=== PATIENT | male | born 1965 | race Caucasian/White ===

== ENCOUNTER 2018-08-27 17:49 | Emergency (ER) | payer SELFPAY ==
[2018-08-27 18:09] VITALS: BP 151/105
--- NOTE | 2018-08-27 18:54 | ER Document Report ---
HPI - HPI Patient complains to provider of: Leg contusion Onset: Other - 5 days Onset/Duration: Better Pain Level: Denies Context: Patient states that he stepped in a hole 5 days ago injuring his right calf. Patient states that he had swelling and bruising but has gradually started to notice bruising to his foot. Patient denies any injury to the foot. Patient states that initially had pain but denies any pain now. Associated Symptoms: Other - Right leg bruising Exacerbated by: Denies Relieved by: Denies Similar symptoms previously: No Recently seen / treated by doctor: No - ROS ROS below otherwise negative: Yes Systems Reviewed and Negative: Yes All other systems reviewed and negative - CONSTITUTIONAL Constitutional: DENIES: Fever - RESPIRATORY Respiratory: DENIES: Trouble Breathing - MUSCULOSKELETAL Musculoskeletal: REPORTS: Extremity pain, Swelling - DERM Skin Color: Ecchymosis Skin Problems: None Past Medical History - General Information source: Patient - Social History Smoking Status: Current Every Day Smoker Smoking Education Provided: Yes Frequency of alcohol use: Occasional Drug Abuse: None Occupation: self employed Family History: Reviewed & Not Pertinent - Medical History Medical History: Negative Past Surgical History: Reports: Hx Appendectomy, Hx Herniorrhaphy, Hx Orthopedic Surgery Vertical Provider Document - CONSTITUTIONAL Agree With Documented VS: Yes Exam Limitations: No Limitations General Appearance: WD/WN, No Apparent Distress - INFECTION CONTROL TRAVEL OUTSIDE OF THE [place] IN LAST 30 DAYS: No - HEENT HEENT: Atraumatic, Normocephalic - NECK Neck: Normal Inspection - RESPIRATORY Respiratory: No Respiratory Distress - CARDIOVASCULAR Pulses: Normal: Dorsalis pedis - MUSCULOSKELETAL/EXTREMETIES Musculoskeletal/Extremeties: MAEW, FROM, Non-Tender, Edema - Right calf swelling with ecchymosis, Eccymosis Notes: Muscle compartments to right calf soft - NEURO Level of Consciousness: Awake, Alert, Appropriate Motor/Sensory: No Motor Deficit - DERM Integumentary: Warm, Dry Course - Re-evaluation Re-evalutation: 08/27/18 19:38 X-ray reviewed, patient with incidental finding of bipartite patella. No tibial fracture. Muscle compartments soft, no concern for compartment syndrome. - Vital Signs Vital signs: Temp Pulse Resp BP Pulse Ox 98.2 F 82 16 151/105 H 97 08/27/18 18:07 08/27/18 18:07 08/27/18 18:07 08/27/18 18:07 08/27/18 18:07 - Diagnostic Test Radiology reviewed: Pending, Image reviewed Discharge - Discharge Clinical Impression: Traumatic ecchymosis of lower leg Qualifiers: Encounter type: initial encounter Laterality: right Qualified Code(s): S80.11XA - Contusion of right lower leg, initial encounter Condition: Stable Disposition: HOME, SELF-CARE Instructions: Contusion ([facility]) Additional Instructions: Return immediately for any new or worsening symptoms Followup with your primary care provider, call tomorrow to make a followup appointment Follow-up with orthopedics for any persistent pain or problems Forms: Smoking Cessation Education Referrals: [facility] [Provider Group] - Follow up as needed
--- NOTE | 2018-08-27 19:54 | RADIOLOGY REPORT (SQ) ---
EXAM DESCRIPTION: TIBIA FIBULA RIGHT COMPLETED DATE/TIME: 08/27/2018 7:37 pm REASON FOR STUDY: stepped in hole, leg pain/bruising COMPARISON: None. NUMBER OF VIEWS: Two views. TECHNIQUE: Two radiographic images acquired of the right tibia and fibula to include the knee and an kle in at least one projection. LIMITATIONS: None. FINDINGS: MINERALIZATION: Normal. BONES: No acute fracture or dislocation. No worrisome bone lesions. SOFT TISSUES: No obvious swelling or foreign body. OTHER: No other significant finding. IMPRESSION: NEGATIVE STUDY OF THE RIGHT TIBIA AND FIBULA. NO RADIOGRAPHIC EVIDENCE OF ACUTE INJURY. TECHNICAL DOCUMENTATION: JOB ID: [id number] [employer]- All Rights Reserved Reading location - IP/workstation name: [email or web address]
== END 2018-08-27 19:49 | disposition home or self-care (01) ==
LOC: ER 17:49
DX: S80.11XA Contusion of right lower leg, initial encounter (principal); M79.89 Other specified soft tissue disorders; W17.2XXA Fall into hole, initial encounter; F17.200 Nicotine dependence, unspecified, uncomplicated
CPT/HCPCS: 99283